=== PATIENT | male | born 1985 | race Two or more races ===

== ENCOUNTER 2024-07-28 04:48 | Inpatient (IN) | payer MEDICAID ==
[~2024-07-28] VITALS: Ht 180.3 cm; Wt 54.8 kg
[2024-07-28 05:40] LABS: BILIRUBIN,URINE NEGATIVE (Neg); CLARITY,URINE CLEAR (Clear); COLOR,URINE YELLOW (Yellow); GLUCOSE, URINE NEGATIVE (Neg); KETONES,URINE NEGATIVE (Neg); LEUKOCYTE ESTERASE ,URINE NEGATIVE (Neg); NITRITES, URINE NEGATIVE (Neg); OCCULT BLOOD,URINE NEGATIVE (Neg); PH,URINE 8.5 (4.8-8.0); PROTEIN,URINE 30 mg/dl (Neg); UROBILINOGEN,URINE 0.2 E.U/dL (0.2-1.0)
[2024-07-28 05:50] LABS: ANION GAP 3 (8-16); BILIRUBIN,TOTAL 1.1 MG/DL (0.1-1.0); BLOOD UREA NITROGEN 6 MG/DL (7-18); BUN/CREATININE RATIO 8.5 (10.0-20.0); CALCIUM 7.5 MG/DL (8.5-10.1); CHLORIDE 111 MMOL/L (99-107); CREATININE 0.71 MG/DL (0.60-1.10); GLUCOSE 81 MG/DL (70-104); POTASSIUM 4.1 MMOL/L (3.5-5.1); SODIUM 143 MMOL/L (135-145); TOTAL CARBON DIOXIDE 28.7 MMOL/L (24-32); eCRCL 107 ML/MIN; eGFR > 90 ML/MIN
[2024-07-28 05:51] LABS: APTT 23 SECONDS (22-32); INR 1.1 INR; PROTHROMBIN TIME 11.4 SECONDS (9.0-12.0)
[2024-07-28 05:51] LABS: ALANINE AMINOTRANSFERASE 21 U/L (12-78); ALBUMIN 2.4 G/DL (3.4-5.0); ALBUMIN/GLOBULIN RATIO 0.8 (1.1-1.5); ALKALINE PHOSPHATASE 66 IU/L (46-116); ASPARTATE AMINO TRANSFERASE 21 U/L (10-37); TOTAL PROTEIN 5.6 G/DL (6.4-8.2)
[2024-07-28 05:57] LABS: UA COLLECTION TYPE CLN CATCH MIDSTREAM
[2024-07-28 06:03] LABS: BACTERIA,URINE NONE SEEN /HPF (Neg); MUCUS STRANDS NONE SEEN /LPF (Neg); RBC,URINE NONE SEEN /HPF (0-2); SQUAMOUS EPITHELIAL CELL,UR FEW /LPF (FEW); WBC,URINE 0-4 /HPF (0-4)
[2024-07-28 06:04] LABS: URINE AMPHETAMINE SCREEN NEGATIVE (Neg); URINE BARBITUATE SCREEN NEGATIVE (Neg); URINE BENZODIAZEPINES SCREEN NEGATIVE (Neg); URINE CANNABINOID SCREEN POSITIVE (Neg); URINE COCAINE SCREEN NEGATIVE (Neg); URINE METHADONE SCREEN NEGATIVE (Neg); URINE OPIATE SCREEN POSITIVE (Neg); URINE PHENCYCLIDINE SCREEN NEGATIVE (Neg)
[2024-07-28 06:08] LABS: BASOPHILS # (AUTO) 0.1 X10'3 (0-0.2); BASOPHILS % (AUTO) 1.5 % (0-1); EOSINOPHILS # (AUTO) 0.1 X10'3 (0-0.9); EOSINOPHILS % (AUTO) 2.3 % (0-6); HEMATOCRIT 27.1 % (42.0-52.0); HEMOGLOBIN 8.6 g/dl (14.0-17.9); LYMPHOCYTES # (AUTO) 1.5 X10'3 (1.1-4.8); LYMPHOCYTES % (AUTO) 28.8 % (21-51); MEAN CORPUSCULAR HGB CONC 31.7 g/dL (33.0-36.5); MEAN CORPUSCULAR VOLUME 75.7 FL (78-98); MEAN PLATELET VOLUME 7.4 FL (7.4-10.4); MONOCYTES # (AUTO) 0.6 X10'3 (0-0.9); MONOCYTES % (AUTO) 11.1 % (2-12); NEUTROPHILS # (AUTO) 2.9 X10'3 (1.8-7.7); NEUTROPHILS % (AUTO) 56.3 % (42-75); PLATELET COUNT 549 X10'3 (140-440); RED BLOOD COUNT 3.58 X10'6 (4.70-6.10); RED CELL DISTRIBUTION WIDTH 23.1 % (11.5-14.5); WHITE BLOOD COUNT 5.2 X10'3 (4.5-11.0)
[2024-07-28] MEDS: pantoprazole 40 MG vial IV ONE (06:28)
[2024-07-28] MEDS ORDERED: magnesium sulf-water 4G/100mL 100 ML IV PRN (08:00)
[2024-07-28] MEDS ORDERED: acetaminophen 325mg tablet PO PRN (08:00)
[2024-07-28] MEDS ORDERED: potassium Cl 20 mEq SR tablet PO PRN ×2 (08:00)
[2024-07-28] MEDS ORDERED: metoclopramide 5 mg/ml inj IV PRN (08:00)
[2024-07-28] MEDS ORDERED: HYDROmorphone/PF 0.2 MG/ML SYRINGE IV PRN (08:00)
[2024-07-28] MEDS ORDERED: potassium Cl 40MEQ/1/2NS 520ml 520 ML IV PRN (08:00)
[2024-07-28] MEDS: K and/or MAG REPLACEMENT MC SCH (08:00)
[2024-07-28] MEDS ORDERED: magnesium sulf-water 2g/50mL 50 ML IV PRN (08:00)
[2024-07-28 08:25] VITALS: BP 160/104; PULSE 65; TEMP 96.8; O2SAT 97
[2024-07-28] MEDS: HYDROmorphone inj. 0.5 MG/0.5 ML DISP.SYRIN IV PRN (09:03)
[2024-07-28 09:11] LABS: PLATELET ESTIMATE INCREASED
[2024-07-28 09:12] LABS: ANISOCYTOSIS 3+; MICROCYTOSIS 1+
[2024-07-28 09:13] VITALS: RESP 16
[2024-07-28 09:15] LABS: ELLIPTOCYTES 1+; HYPOCHROMASIA 2+
[2024-07-28 09:22] LABS: AMYLASE 59 U/L (25-115); LIPASE 31 U/L (16-77)
[2024-07-28] MEDS ORDERED: pantoprazole 40 MG vial IV SCH (20:00)
== END 2024-07-28 13:51 | disposition left against medical advice (07) | DRG 253 ==
LOC: ER 04:50 → ED HOLD 08:09
PROVIDERS: ADMIT Internal Medicine Critical Care Medicine; ATTEND Internal Medicine Critical Care Medicine
DX: K92.2 Gastrointestinal hemorrhage, unspecified (principal); E83.51 Hypocalcemia; D62 Acute posthemorrhagic anemia; E88.09 Other disorders of plasma-protein metabolism, not elsewhere classified; M54.9 Dorsalgia, unspecified; F15.90 Other stimulant use, unspecified, uncomplicated; Z53.21 Procedure and treatment not carried out due to patient leaving prior to being seen by health care provider; Z87.891 Personal history of nicotine dependence; Z88.8 Allergy status to other drugs, medicaments and biological substances
CPT/HCPCS: 36415; 71045; 80053; 80305; 81001; 82150; 83690; 85008; 85025; 85610; 85730; 86885; 86900; 86901; 93005; 99291; G0378; J1171; J2470

== ENCOUNTER 2024-07-31 13:21 | Emergency (ER) | payer MEDICAID ==
[~2024-07-31] VITALS: Ht 175.3 cm; Wt 54.8 kg
[2024-07-31 13:26] VITALS: BP 185/114; PULSE 80; TEMP 98.3; O2SAT 98
[2024-07-31 14:17] LABS: BASOPHILS # (AUTO) 0.1 X10'3 (0-0.2); BASOPHILS % (AUTO) 1.6 % (0-1); EOSINOPHILS % (AUTO) 0.6 % (0-6); HEMATOCRIT 33.2 % (42.0-52.0); HEMOGLOBIN 10.5 g/dl (14.0-17.9); LYMPHOCYTES # (AUTO) 1.4 X10'3 (1.1-4.8); LYMPHOCYTES % (AUTO) 19.6 % (21-51); MEAN CORPUSCULAR HEMOGLOBIN 23.7 PG (27.0-31.0); MEAN CORPUSCULAR HGB CONC 31.5 g/dL (33.0-36.5); MEAN CORPUSCULAR VOLUME 75.1 FL (78-98); MEAN PLATELET VOLUME 7.3 FL (7.4-10.4); MONOCYTES # (AUTO) 0.7 X10'3 (0-0.9); NEUTROPHILS % (AUTO) 69.2 % (42-75); PLATELET COUNT 571 X10'3 (140-440); RED BLOOD COUNT 4.42 X10'6 (4.70-6.10); RED CELL DISTRIBUTION WIDTH 24.7 % (11.5-14.5); WHITE BLOOD COUNT 7.3 X10'3 (4.5-11.0)
[2024-07-31 14:34] LABS: ALANINE AMINOTRANSFERASE 29 U/L (12-78); ALBUMIN 3.8 G/DL (3.4-5.0); ALBUMIN/GLOBULIN RATIO 0.9 (1.1-1.5); ALKALINE PHOSPHATASE 96 IU/L (46-116); ANION GAP 6 (8-16); ASPARTATE AMINO TRANSFERASE 21 U/L (10-37); BILIRUBIN,TOTAL 0.7 MG/DL (0.1-1.0); BLOOD UREA NITROGEN 13 MG/DL (7-18); BUN/CREATININE RATIO 17.6 (10.0-20.0); CALCIUM 8.6 MG/DL (8.5-10.1); CHLORIDE 99 MMOL/L (99-107); CREATININE 0.74 MG/DL (0.60-1.10); GLUCOSE 100 MG/DL (70-104); LIPASE 48 U/L (16-77); POTASSIUM 3.3 MMOL/L (3.5-5.1); SODIUM 138 MMOL/L (135-145); TOTAL CARBON DIOXIDE 33.2 MMOL/L (24-32); eCRCL 103 ML/MIN; eGFR > 90 ML/MIN
[2024-07-31 14:39] LABS: ANISOCYTOSIS 3+; MICROCYTOSIS 1+; PLATELET ESTIMATE INCREASED; POIKILOCYTOSIS 1+
[2024-07-31 16:49] LABS: BILIRUBIN,URINE NEGATIVE (Neg); CLARITY,URINE SLIGHTLY CLOUDY (Clear); COLOR,URINE YELLOW (Yellow); GLUCOSE, URINE NEGATIVE (Neg); KETONES,URINE NEGATIVE (Neg); LEUKOCYTE ESTERASE ,URINE NEGATIVE (Neg); NITRITES, URINE NEGATIVE (Neg); OCCULT BLOOD,URINE NEGATIVE (Neg); PH,URINE >=9.0 (4.8-8.0); PROTEIN,URINE 100 mg/dl (Neg)
[2024-07-31 16:53] LABS: AMORPHOUS PHOSPHATES 1+; BACTERIA,URINE NONE SEEN /HPF (Neg); MUCUS STRANDS NONE SEEN /LPF (Neg); RBC,URINE NONE SEEN /HPF (0-2); SQUAMOUS EPITHELIAL CELL,UR NONE SEEN /LPF (FEW); UA COLLECTION TYPE NON-SPECIFIED; WBC,URINE NONE SEEN /HPF (0-4)
[2024-07-31 17:17] VITALS: RESP 16
[2024-07-31] MEDS ORDERED: ACET325T57 PO (17:17)
[2024-07-31] MEDS ORDERED: PANT-47 PO (17:17)
[2024-07-31] MEDS ORDERED: pantoprazole 40mg Tablet.DR PO SCH (17:20)
[2024-07-31] MEDS: pantoprazole 40mg Tablet.DR PO ONE (17:43)
[2024-07-31] MEDS: acetaminophen 325mg tablet PO ONE (17:43)
[2024-07-31] MEDS: ondansetron 4mg rapidly disintigrating tab PO ONE (17:43)
== END 2024-07-31 18:15 | disposition home or self-care (01) ==
LOC: ER 13:21
DX: R10.84 Generalized abdominal pain (principal); M79.18 Myalgia, other site; R51.9 Headache, unspecified; M79.643 Pain in unspecified hand; F10.10 Alcohol abuse, uncomplicated; F15.90 Other stimulant use, unspecified, uncomplicated; Z98.890 Other specified postprocedural states; Y90.9 Presence of alcohol in blood, level not specified
CPT/HCPCS: 36415; 80053; 81001; 83690; 85008; 85025; 99284

== ENCOUNTER 2024-08-01 11:45 | Emergency (ER) | payer MEDICAID ==
[~2024-08-01] VITALS: Ht 172.7 cm; Wt 77.3 kg
[~2024-08-01 11:45] MED LIST: ACET325T57 PO; PANT-47 PO
[2024-08-01 12:14] VITALS: BP 172/93; PULSE 77; RESP 18; TEMP 97.8; O2SAT 100
[2024-08-01] MEDS: acetaminophen 325mg tablet PO ONE (13:39)
== END 2024-08-01 14:58 | disposition home or self-care (01) ==
LOC: ER 11:47
DX: T69.022A Immersion foot, left foot, initial encounter (principal); T69.021A Immersion foot, right foot, initial encounter; F10.10 Alcohol abuse, uncomplicated; F15.90 Other stimulant use, unspecified, uncomplicated; Z79.899 Other long term (current) drug therapy; Y90.9 Presence of alcohol in blood, level not specified
CPT/HCPCS: 99282; 99283

== ENCOUNTER 2024-08-11 21:55 | Emergency (ER) | payer MEDICAID ==
[~2024-08-11] VITALS: Ht 177.8 cm; Wt 70.9 kg
[2024-08-11 22:15] VITALS: BP 186/101; PULSE 83; RESP 20; O2SAT 99
[2024-08-11 23:52] VITALS: TEMP 98.2
== END 2024-08-11 23:54 | disposition home or self-care (01) ==
LOC: ER 21:56
DX: J00 Acute nasopharyngitis [common cold] (principal); R05.9 Cough, unspecified; R68.89 Other general symptoms and signs; T69.029D Immersion foot, unspecified foot, subsequent encounter; Z59.00 Homelessness unspecified
CPT/HCPCS: 99281

== ENCOUNTER 2024-09-09 21:15 | Inpatient (IN) | payer MEDICAID ==
[~2024-09-09] VITALS: Ht 139.7 cm; Wt 46.6 kg
[~2024-09-09 21:15] MED LIST changes: -ACET325T57 PO
[2024-09-09 22:00] LABS: BASOPHILS # (AUTO) 0.1 X10'3 (0-0.2); BASOPHILS % (AUTO) 1.3 % (0-1); EOSINOPHILS # (AUTO) 0.2 X10'3 (0-0.9); EOSINOPHILS % (AUTO) 3.8 % (0-6); HEMOGLOBIN 10.1 g/dl (14.0-17.9); LYMPHOCYTES # (AUTO) 1.6 X10'3 (1.1-4.8); LYMPHOCYTES % (AUTO) 32.5 % (21-51); MEAN CORPUSCULAR HEMOGLOBIN 23.2 PG (27.0-31.0); MEAN CORPUSCULAR HGB CONC 31.7 g/dL (33.0-36.5); MEAN PLATELET VOLUME 6.9 FL (7.4-10.4); MONOCYTES # (AUTO) 0.5 X10'3 (0-0.9); MONOCYTES % (AUTO) 10.1 % (2-12); NEUTROPHILS # (AUTO) 2.6 X10'3 (1.8-7.7); NEUTROPHILS % (AUTO) 52.3 % (42-75); PLATELET COUNT 350 X10'3 (140-440); RED BLOOD COUNT 4.38 X10'6 (4.70-6.10); RED CELL DISTRIBUTION WIDTH 22.3 % (11.5-14.5); WHITE BLOOD COUNT 4.9 X10'3 (4.5-11.0)
[2024-09-09 22:11] LABS: ALANINE AMINOTRANSFERASE 28 U/L (12-78); ALBUMIN 4.1 G/DL (3.4-5.0); ALBUMIN/GLOBULIN RATIO 1.1 (1.1-1.5); ALKALINE PHOSPHATASE 84 IU/L (46-116); ANION GAP 8 (8-16); ASPARTATE AMINO TRANSFERASE 24 U/L (10-37); BILIRUBIN,TOTAL 0.4 MG/DL (0.1-1.0); BLOOD UREA NITROGEN 12 MG/DL (7-18); BUN/CREATININE RATIO 15.4 (10.0-20.0); CALCIUM 9.1 MG/DL (8.5-10.1); CHLORIDE 103 MMOL/L (99-107); CREATININE 0.78 MG/DL (0.60-1.10); GLUCOSE 128 MG/DL (70-104); POTASSIUM 3.7 MMOL/L (3.5-5.1); SODIUM 139 MMOL/L (135-145); TOTAL PROTEIN 7.9 G/DL (6.4-8.2); eGFR > 90 ML/MIN
[2024-09-09 22:15] LABS: LIPASE > 375 U/L (16-77)
[2024-09-09 22:22] LABS: ANISOCYTOSIS 3+; ELLIPTOCYTES 1+; MICROCYTOSIS 1+; PLATELET ESTIMATE NORMAL
[2024-09-10 00:30] LABS: ETHANOL < 10 MG/DL (<10)
[2024-09-10] MEDS: normal saline 1000ML IV soln IVB ONE (00:30)
[2024-09-10] MEDS: diphenhydrAMINE 50 mg/ml inj IV ONE (00:30)
[2024-09-10] MEDS: ondansetron/PF 4mg/2ml inj IV ONE (00:42)
[2024-09-10] MEDS ORDERED: NO HOME MEDS (01:03)
[2024-09-10] MEDS ORDERED: potassium Cl 20 mEq SR tablet PO PRN ×2 (01:10)
[2024-09-10] MEDS ORDERED: acetaminophen 325mg tablet PO PRN (01:10)
[2024-09-10] MEDS ORDERED: morphine 2 MG/ML inj. syringe IV PRN (01:10)
[2024-09-10] MEDS ORDERED: magnesium Cl slow-release 64mg tablet PO PRN (01:10)
[2024-09-10] MEDS ORDERED: docusate sod 100mg capsule PO PRN (01:10)
[2024-09-10] MEDS ORDERED: magnesium sulf-water 4G/100mL 100 ML IV PRN (01:10)
[2024-09-10] MEDS ORDERED: sodium chloride 0.45% 1,000 ML IV SCH (01:10)
[2024-09-10] MEDS ORDERED: mag hydrox/Alum hydrox/simeth 30ml oral suspension PO PRN (01:10)
[2024-09-10] MEDS ORDERED: potassium Cl 40MEQ/1/2NS 520ml 520 ML IV PRN (01:10)
[2024-09-10] MEDS ORDERED: magnesium sulf-water 2g/50mL 50 ML IV PRN (01:10)
[2024-09-10] MEDS: amLODIPine 5mg tablet PO ONE (04:09)
[2024-09-10] MEDS: pantoprazole 40 MG vial IV SCH (04:09)
[2024-09-10] MEDS: ringers solution, lacted 1,000 ML IV SCH (04:11)
[2024-09-10 05:08] LABS: BILIRUBIN,URINE NEGATIVE (Neg); CLARITY,URINE CLEAR (Clear); COLOR,URINE YELLOW (Yellow); GLUCOSE, URINE NEGATIVE (Neg); KETONES,URINE NEGATIVE (Neg); LEUKOCYTE ESTERASE ,URINE NEGATIVE (Neg); NITRITES, URINE NEGATIVE (Neg); OCCULT BLOOD,URINE NEGATIVE (Neg); PROTEIN,URINE NEGATIVE (Neg)
[2024-09-10 05:09] LABS: UA COLLECTION TYPE URINAL
[2024-09-10 05:50] LABS: URINE AMPHETAMINE SCREEN POSITIVE (Neg); URINE BARBITUATE SCREEN NEGATIVE (Neg); URINE BENZODIAZEPINES SCREEN NEGATIVE (Neg); URINE CANNABINOID SCREEN POSITIVE (Neg); URINE COCAINE SCREEN NEGATIVE (Neg); URINE METHADONE SCREEN NEGATIVE (Neg); URINE OPIATE SCREEN NEGATIVE (Neg); URINE PHENCYCLIDINE SCREEN NEGATIVE (Neg)
[2024-09-10 07:08] LABS: IRON 20 UG/DL (53-167)
[2024-09-10 07:09] LABS: % IRON SATURATION 5 % (11-46); TOTAL IRON BINDING CAPACITY 420 UG/DL (259-388)
[2024-09-10 07:19] LABS: FERRITIN 12 NG/ML (26-388); MAGNESIUM 2.1 MG/DL (1.5-2.4)
[2024-09-10 07:32] LABS: HEMOGLOBIN A1C 5.9 % (4.5-6.2); LACTATE DEHYDROGENASE 278 U/L (85-227); POTASSIUM 4.3 MMOL/L (3.5-5.1)
[2024-09-10] MEDS: heparin, porcine 5000 units/ml vial SQ SCH (08:00)
[2024-09-10] MEDS: K and/or MAG REPLACEMENT MC SCH (08:00)
[2024-09-10 08:43] LABS: CHOL/HDL RATIO 2.3 (0.00-4.99); CHOLESTEROL 179 MG/DL (0-200); HDL CHOLESTEROL 77 MG/DL (35-60); LDL CHOLESTEROL 86 MG/DL (50-100); PRO BRAIN NATRIURETIC PEPTIDE 153 PG/ML (0-125); THYROID STIMULATING HORMONE 0.95 ulU/ml (0.34-4.50); TRIGLYCERIDES 77 MG/DL (20-135)
[2024-09-10] MEDS ORDERED: iohexol 300mg/ml 100ml inj. ONE (08:47)
[2024-09-10] MEDS: amLODIPine 5mg tablet PO SCH (09:49)
[2024-09-10 10:00] VITALS: BP 187/103; PULSE 57; RESP 16; RESP 18; TEMP 97.8; O2SAT 100
[2024-09-10] MEDS: ondansetron/PF 4mg/2ml inj IV PRN (11:18)
[2024-09-10] MEDS: ferrous gluconate 324mg tablet PO SCH (11:22)
[2024-09-10] MEDS: ascorbic acid 500mg tablet PO SCH (11:22)
[2024-09-10] MEDS: morphine 2 MG/ML inj. syringe IV PRN (11:31)
[2024-09-10 13:27] VITALS: BP 195/97; PULSE 55
[2024-09-10] MEDS: hydrALAZINE 20mg/ml inj. IV PRN (13:29)
[2024-09-10 16:45] VITALS: BP 152/92; PULSE 58; RESP 16; O2SAT 100
[2024-09-10 18:30] VITALS: BP_SYST 137; BP_SYST 152; BP_DIAS 91; BP_DIAS 92; PULSE 57; PULSE 68; RESP 16; TEMP 98; TEMP 98.1; O2SAT 100; O2SAT 99
[2024-09-11] VITALS (7 sets, daily range): BP systolic 151–168; BP diastolic 77–107; PULSE 59–68; RESP 12–18; TEMP 97.4–98.4; O2SAT 65–100
[2024-09-11 05:57] LABS: BASOPHILS # (AUTO) 0.1 X10'3 (0-0.2); EOSINOPHILS # (AUTO) 0.3 X10'3 (0-0.9); EOSINOPHILS % (AUTO) 5.9 % (0-6); HEMATOCRIT 32.3 % (42.0-52.0); LYMPHOCYTES # (AUTO) 1.5 X10'3 (1.1-4.8); LYMPHOCYTES % (AUTO) 34.5 % (21-51); MEAN CORPUSCULAR HEMOGLOBIN 23.1 PG (27.0-31.0); MEAN CORPUSCULAR HGB CONC 30.9 g/dL (33.0-36.5); MEAN CORPUSCULAR VOLUME 74.6 FL (78-98); MEAN PLATELET VOLUME 7.5 FL (7.4-10.4); MONOCYTES # (AUTO) 0.4 X10'3 (0-0.9); NEUTROPHILS # (AUTO) 2.1 X10'3 (1.8-7.7); NEUTROPHILS % (AUTO) 48.6 % (42-75); PLATELET COUNT 328 X10'3 (140-440); RED BLOOD COUNT 4.32 X10'6 (4.70-6.10); RED CELL DISTRIBUTION WIDTH 22.3 % (11.5-14.5); WHITE BLOOD COUNT 4.3 X10'3 (4.5-11.0)
[2024-09-11 06:31] LABS: ALANINE AMINOTRANSFERASE 28 U/L (12-78); ALBUMIN 3.2 G/DL (3.4-5.0); ALKALINE PHOSPHATASE 70 IU/L (46-116); ANION GAP 9 (8-16); ASPARTATE AMINO TRANSFERASE 19 U/L (10-37); BILIRUBIN,TOTAL 0.6 MG/DL (0.1-1.0); BLOOD UREA NITROGEN 6 MG/DL (7-18); BUN/CREATININE RATIO 7.1 (10.0-20.0); CALCIUM 8.3 MG/DL (8.5-10.1); CHLORIDE 106 MMOL/L (99-107); CHOL/HDL RATIO 2.3 (0.00-4.99); CHOLESTEROL 170 MG/DL (0-200); CREATININE 0.85 MG/DL (0.60-1.10); GLUCOSE 175 MG/DL (70-104); HDL CHOLESTEROL 74 MG/DL (35-60); LDL CHOLESTEROL 84 MG/DL (50-100); MAGNESIUM 1.7 MG/DL (1.5-2.4); POTASSIUM 3.7 MMOL/L (3.5-5.1); SODIUM 141 MMOL/L (135-145); TOTAL CARBON DIOXIDE 26.5 MMOL/L (24-32); TOTAL PROTEIN 6.5 G/DL (6.4-8.2); TRIGLYCERIDES 52 MG/DL (20-135); eCRCL 63 ML/MIN; eGFR > 90 ML/MIN
[2024-09-11 07:51] LABS: LIPASE 99 U/L (16-77)
[2024-09-11] MEDS ORDERED: traMADol 50MG tablet PO PRN (15:30)
[2024-09-11] MEDS: losartan 25mg tablet PO SCH (16:23)
[2024-09-11] MEDS: magnesium hydroxide 30ml (MOM) UD suspension PO PRN (16:23)
[2024-09-11] MEDS: traMADol 50MG tablet PO ONE (16:24)
[2024-09-11] MEDS: morphine 2 MG/ML inj. syringe IV ONE (16:55)
[2024-09-12] MEDS: HYDROcodone/acetaminophen 10/325mg tab PO PRN (04:23)
[2024-09-12 06:00] VITALS: BP_SYST 123; BP_SYST 183; BP_DIAS 105; PULSE 101; RESP 18; TEMP 98.2; O2SAT 100
[2024-09-12] MEDS ORDERED: VITC500T PO (08:27)
[2024-09-12] MEDS ORDERED: NOR5T PO (08:27)
[2024-09-12] MEDS ORDERED: FERR324T3 PO (08:27)
[2024-09-12 09:15] VITALS: BP 152/104; PULSE 66; RESP 18; TEMP 97.4; O2SAT 97
[2024-09-12 09:30] VITALS: RESP 18; O2SAT 97
[2024-09-12] MEDS ORDERED: PANT-47 PO (12:05)
== END 2024-09-12 11:20 | disposition home or self-care (01) | DRG 282 ==
LOC: ER 21:16 → ED HOLD 09-10 01:03 → ORTHO 4S 09-10 10:00 → UNDODISIN 09-12 11:29
PROVIDERS: ADMIT Internal Medicine; ATTEND Family Medicine
PROC: BW211ZZ Computerized Tomography (CT Scan) of Abdomen and Pelvis using Low Osmolar Contrast (ICD-10-PCS; principal; 2024-09-10)
DX: K85.90 Acute pancreatitis without necrosis or infection, unspecified (principal); D50.9 Iron deficiency anemia, unspecified; F15.90 Other stimulant use, unspecified, uncomplicated; R73.9 Hyperglycemia, unspecified; F12.90 Cannabis use, unspecified, uncomplicated; Z79.899 Other long term (current) drug therapy; Z88.8 Allergy status to other drugs, medicaments and biological substances
CPT/HCPCS: 36415; 71045; 74177; 76700; 80053; 80061; 80305; 80320; 81003; 82728; 82977; 83036; 83540; 83550; 83615; 83690; 83735; 83880; 84132; 84443; 84466; 85008; 85025; 87081; 99285; G0378; J0360; J1200; J1644; J2270; J2405; J2470; J7030; J7120; Q9967